=== PATIENT | male | born 1960 | race Caucasian/White ===

== ENCOUNTER 2018-09-15 17:48 | Observation (INO) ==
[2018-09-15] MEDS ORDERED: ONDANSETRON 4 MG/2 ML VIAL IV STA (18:15)
[2018-09-15] MEDS ORDERED: MORPHINE 4 MG/1 ML VIAL IV STA (18:15)
[2018-09-15] MEDS ORDERED: ASPIRIN 325 MG TABLET PO STA (18:15)
[2018-09-15] MEDS ORDERED: HYDROmorphone 2 MG/1 ML VIAL IV STA (18:16)
[2018-09-15 18:23] LABS: Basophils # 0.1 10*3/uL (0.0-0.2); Basophils % 0.6 % (0.0-0.8); Eosinophils # 0.2 10*3/uL (0.0-0.87); Eosinophils % 2.2 % (0.00-10.9); Hematocrit 45.4 VOL% (42.0-52.0); Hemoglobin 14.8 GM/DL (14.0-18.0); Immature Granulocytes % 0.4 %; Immature Granulocytes Absolute 0.04 #; Lymphocytes # 2.4 10*3/uL (1.4-4.0); Lymphocytes % 23.8 % (21.2-54.2); Mean Corpuscular HGB Conc 32.6 GM/DL (32-36); Mean Corpuscular Volume 91.5 FL (87-102); Mean Platelet Volume 10.7 FL (9.6-12.0); Monocytes % 6.9 % (1.7-12.7); Neutrophils % 66.1 % (38.7-73.9); Platelet Count 216 T/CUMM (130-400); Red Blood Count 4.96 MC/CUMM (3.8-5.5); Red Cell Distribution Width 13.2 % (9.3-17.3); White Blood Count 9.9 T/CUMM (4-12)
[2018-09-15 18:33] LABS: INR 0.9
[2018-09-15 18:45] LABS: Alanine Aminotransferase 33 U/L (16-61); Albumin 3.9 G/DL (3.4-5.0); Alkaline Phosphatase 137 U/L (45-117); Aspartate Amino Transferase 20 U/L (0-37); Bilirubin,Total < 0.39 MG/DL (0.2-1.0); Blood Urea Nitrogen 38 MG/DL (7-18); Calcium 9.5 MG/DL (8.5-10.1); Glucose 137 MG/DL (74-106); Osmolality,Calculated 289.4 MOS/KG (273-304); Total Protein 8.2 G/DL (6.4-8.3)
[2018-09-15] MEDS ORDERED: ZALEPLON 5 MG CAPSULE PO PRN (19:45)
[2018-09-15] MEDS ORDERED: NICOTINE 21 MG/24 HR PATCH TRANSDERM PRN (19:45)
[2018-09-15] MEDS ORDERED: ACETAMINOPHEN 325 MG TABLET PO PRN (19:45)
[2018-09-15] MEDS ORDERED: DOCUSATE SODIUM 100 MG CAPSULE PO PRN (19:45)
[2018-09-15] MEDS ORDERED: ONDANSETRON 4 MG/2 ML VIAL IV PRN (19:45)
[2018-09-15] MEDS ORDERED: NITROGLYCERIN SL 0.4 MG TABLET SL PRN (19:52)
[2018-09-15] MEDS ORDERED: ENOXAPARIN 40 MG/0.4 ML SYRINGE SUBCUT SCH (21:00)
[2018-09-15] MEDS ORDERED: CYCLOBENZAPRINE 10 MG TABLET PO SCH (21:00)
[2018-09-15] MEDS: GABAPENTIN 300 MG CAPSULE PO SCH (21:56)
[2018-09-15] MEDS: oxyCODONE/ACETAMINOPHEN 5-325 MG TABLET PO PRN (22:03)
[2018-09-16 01:56] LABS: Basophils # 0.1 10*3/uL (0.0-0.2); Basophils % 0.8 % (0.0-0.8); Eosinophils # 0.3 10*3/uL (0.0-0.87); Hemoglobin 14.2 GM/DL (14.0-18.0); Immature Granulocytes % 0.2 %; Immature Granulocytes Absolute 0.02 #; Lymphocytes # 2.7 10*3/uL (1.4-4.0); Lymphocytes % 31.1 % (21.2-54.2); Mean Corpuscular Volume 92.1 FL (87-102); Monocytes % 8.5 % (1.7-12.7); Neutrophils % 56.4 % (38.7-73.9); Platelet Count 199 T/CUMM (130-400); Red Blood Count 4.67 MC/CUMM (3.8-5.5); Red Cell Distribution Width 13.3 % (9.3-17.3); White Blood Count 8.7 T/CUMM (4-12)
[2018-09-16 03:41] LABS: Osmolality,Calculated 296.1 MOS/KG (273-304)
[2018-09-16] MEDS ORDERED: FUROSEMIDE 40 MG TABLET PO SCH (09:00)
[2018-09-16] MEDS ORDERED: CLOPIDOGREL 75 MG TABLET PO SCH (09:00)
[2018-09-16] MEDS ORDERED: PANTOPRAZOLE 40 MG TABLET PO SCH (09:00)
[2018-09-16] MEDS ORDERED: ALLOPURINOL 100 MG TABLET PO SCH (09:00)
[2018-09-16] MEDS ORDERED: CHLORTHALIDONE 25 MG TABLET PO SCH (09:00)
[2018-09-16] MEDS ORDERED: POTASSIUM CHLORIDE 20 MEQ TABLET PO SCH (09:00)
[2018-09-16] MEDS ORDERED: LOSARTAN 25 MG TABLET PO SCH (09:00)
[2018-09-16] MEDS ORDERED: PARoxetine 20 MG TABLET PO SCH (09:00)
[2018-09-16] MEDS ORDERED: ATORVASTATIN 80 MG TABLET PO SCH (09:00)
[2018-09-16] MEDS ORDERED: TAMSULOSIN 0.4 MG CAPSULE PO SCH (09:00)
[2018-09-16] MEDS ORDERED: ISOSORBIDE MONONITRATE 30 MG TABLET PO SCH (09:00)
[2018-09-16] MEDS ORDERED: POTASSIUM CHLORIDE 20 MEQ TABLET PO ONE (09:14)
[2018-09-16] MEDS: GABAPENTIN 300 MG CAPSULE PO SCH ×2 (10:00→12:48)
[2018-09-16] MEDS: oxyCODONE/ACETAMINOPHEN 5-325 MG TABLET PO PRN (10:09)
[2018-09-16] MEDS ORDERED: MAGNESIUM SULF RIDER 2 GM in PREMIX 1 EACH IV ONE (10:48)
[2018-09-16] MEDS ORDERED: CYCLOBENZAPRINE 10 MG TABLET PO ONE (10:59)
[2018-09-16 12:02] LABS: Barbiturates Screen,Urine Negative (Negative); Benzodiazepines Screen,Urine Negative (Negative); Cannabinoid Screen,Urine Negative (Negative); Opiate Screen,Urine Positive (Negative); Phencyclidine Screen,Urine Negative (Negative)
[2018-09-16 13:32] VITALS: BP 119/77
== END 2018-09-16 13:38 | disposition home or self-care (01) ==
LOC: N.TELES 17:48 → N.ED 17:48 → N.TELES 21:30
PROVIDERS: ADMIT Family Medicine; ATTEND Family Medicine